=== PATIENT | male | born 1945 ===

== ENCOUNTER 2022-05-10 11:41 | Inpatient (IN) ==
[2022-05-10] MEDS ORDERED: Metoprolol Tartrate 5 mg VIAL 5 ml VIAL (1 mg/ml) IV PRN (15:03)
[2022-05-10 15:14] LABS: Hematocrit 36 % (42-52); Hemoglobin 11.5 g/dL (14.0-18.0); Mean Corpuscular HGB Conc 32 g/dL (31-36); Mean Corpuscular Hemoglobin 28 pg (27-31); Mean Corpuscular Volume 86 fL (80-94); Mean Platelet Volume 7.6 fL (7.4-10.4); Platelet Count 228 10^3/uL (150-450); Red Blood Count 4.12 10^6 /uL (4.18-5.48); Red Cell Distribution Width 18 % (10-15); White Blood Count 27.7 10^3/uL (3.5-10.8)
[2022-05-10 15:20] LABS: INR 4.08 (0.89-1.11)
[2022-05-10] MEDS ORDERED: Lactated Ringers 1000 ml BAG 1,000 ML IV ONE ×2 (15:31→15:38)
[2022-05-10 15:55] LABS: ABS Lymphocytes 0.5 10^3/ul (1.0-4.8); ABS Neutrophils 26.2 10^3/ul (1.5-7.7); Anisocytosis 1+; Lymphocyte % 1.9 %
[2022-05-10 16:01] LABS: Albumin 3.4 g/dL (3.2-5.2); Albumin/Globulin Ratio 1.1 (1-3); Calcium 8.9 mg/dL (8.6-10.3); Globulin 3.1 g/dL (2-4); Magnesium 1.8 mg/dL (1.9-2.7); Potassium 4.8 mmol/L (3.5-5.0); Total Bilirubin 0.6 mg/dL (0.2-1.0); Total Protein 6.5 g/dL (6.4-8.9); eGFR CKD-EPI 32.7 (>60)
[2022-05-10] MEDS ORDERED: Magnesium Sulfate 2 gm BAG 2 GM/50 ML BAG IVPB ONE (16:14)
[2022-05-10] MEDS ORDERED: Furosemide 40 mg/4 ml IV VIAL IV SLOW PU ONE (16:18)
[2022-05-10] MEDS ORDERED: Metoprolol Tartrate 5 mg VIAL 5 ml VIAL (1 mg/ml) IV ONE (17:18)
[2022-05-10] MEDS ORDERED: Phytonadione SUBCUT/IM Adult 10 MG/ML AMP (IM or SQ not preferred route) SUBCUT ONE (17:20)
[2022-05-10] MEDS ORDERED: Vancomycin per Pharmacy 1 EA NOTE FOLLOW UP SCH (18:00)
[2022-05-10] MEDS ORDERED: Phytonadione 10 mg in 50 mL NS over 30 min IV ONE (18:00)
[2022-05-10] MEDS ORDERED: cefTRIAXone 1 gm/50 mL D5W 1 GM/50 ML BAG IV SCH (18:00)
[2022-05-10] MEDS ORDERED: Vancomycin 2,000 MG in NS 0.9% 500 ml BAG 500 ML IVPB ONE (18:00)
[2022-05-10 18:27] LABS: Vancomycin Trough 4.7 mcg/mL
[2022-05-10 19:13] LABS: TSH Ultra Thyroid Stim Horm 1.63 mcIU/mL (0.34-5.60)
[2022-05-10 19:27] LABS: High Sensitivity Troponin 1 Hr 23 pg/mL (<20)
[2022-05-10 19:32] LABS: Osmolality Serum 291 mOsm/kg (275-295)
[2022-05-10] MEDS: Nystatin TOP POWDER 15 GM BTL TOPICAL SCH (20:15)
[2022-05-11] MEDS ORDERED: Vancomycin Random Level NOTE FOLLOW UP ONE (06:00)
[2022-05-11 06:11] LABS: Hematocrit 33 % (42-52); Hemoglobin 10.6 g/dL (14.0-18.0); Mean Corpuscular HGB Conc 33 g/dL (31-36); Mean Corpuscular Hemoglobin 28 pg (27-31); Mean Corpuscular Volume 86 fL (80-94); Mean Platelet Volume 7.8 fL (7.4-10.4); Platelet Count 203 10^3/uL (150-450); Red Blood Count 3.81 10^6 /uL (4.18-5.48); Red Cell Distribution Width 18 % (10-15); White Blood Count 23.8 10^3/uL (3.5-10.8)
[2022-05-11 06:28] LABS: Calcium 8.4 mg/dL (8.6-10.3); Magnesium 2.2 mg/dL (1.9-2.7); Potassium 4.5 mmol/L (3.5-5.0); Vancomycin Random 13.1 mcg/mL; eGFR CKD-EPI 32.9 (>60)
[2022-05-11] MEDS ORDERED: Furosemide 40 mg/4 ml IV VIAL IV ONE ×2 (07:31→12:50)
[2022-05-11 08:02] LABS: Urine Sodium Concentration < 18 mmol/L
[2022-05-11 08:05] LABS: Urine Osmo 224 mOsm/kg (150-1150)
[2022-05-11 08:32] LABS: Vitamin D Total 25(OH) 27.9 ng/mL (20-50)
[2022-05-11 08:37] LABS: INR 3.21 (0.89-1.11)
[2022-05-11 08:59] LABS: Urine Appearance Clear; Urine Bilirubin Negative (Negative); Urine Blood Trace (Intact) (Negative); Urine Color Yellow; Urine Glucose Negative (Negative); Urine Ketones Negative (Negative); Urine Specific Gravity <=1.005 (1.005-1.030)
[2022-05-11 09:00] LABS: Urine Nitrite Negative (Negative); Urine Protein Negative (Negative); Urine Urobilinogen 0.2 (Negative) (Negative)
[2022-05-11] MEDS ORDERED: Furosemide 40 mg/4 ml IV VIAL IV SLOW PU SCH (09:00)
[2022-05-11 09:34] LABS: Urine Amorphous Crystals Present (Absent); Urine Bacteria Absent (Absent); Urine Red Blood Cell Absent (Absent); Urine Squamous Epithelial Cell Present (Absent); Urine White Blood Cell Absent (Absent)
[2022-05-11] MEDS: Nystatin TOP POWDER 15 GM BTL TOPICAL SCH ×3 (09:47→20:09)
[2022-05-11 10:48] LABS: Urine Creatinine Concentration 53.55 mg/dL
[2022-05-11] MEDS ORDERED: Perflutren Lipid Microsphere 3 ML VIAL ONE (11:29)
[2022-05-11 11:39] LABS: Ur Urea Nitrogen Concentration 369 mg/dL
[2022-05-11] MEDS: cefTRIAXone 2 gm/50 mL D5W 2 GM/50 ML BAG IV SCH (12:10)
[2022-05-11 15:47] LABS: C Reactive Protein 292.03 mg/L (<8.01)
[2022-05-12 07:55] LABS: Hematocrit 32 % (42-52); Hemoglobin 10.5 g/dL (14.0-18.0); Mean Corpuscular HGB Conc 32 g/dL (31-36); Mean Corpuscular Hemoglobin 28 pg (27-31); Mean Corpuscular Volume 87 fL (80-94); Mean Platelet Volume 8.2 fL (7.4-10.4); Platelet Count 191 10^3/uL (150-450); Red Blood Count 3.72 10^6 /uL (4.18-5.48); Red Cell Distribution Width 18 % (10-15); White Blood Count 12.9 10^3/uL (3.5-10.8)
[2022-05-12 08:17] LABS: Calcium 8.5 mg/dL (8.6-10.3); Magnesium 2.3 mg/dL (1.9-2.7); Potassium 4.3 mmol/L (3.5-5.0); eGFR CKD-EPI 52.3 (>60)
[2022-05-12] MEDS ORDERED: Furosemide 40 mg/4 ml IV VIAL IV SCH (09:00)
[2022-05-12] MEDS: cefTRIAXone 2 gm/50 mL D5W 2 GM/50 ML BAG IV SCH (09:56)
[2022-05-12] MEDS: Nystatin TOP POWDER 15 GM BTL TOPICAL SCH ×3 (09:56→20:24)
[2022-05-12] MEDS ORDERED: Furosemide 40 mg/4 ml IV VIAL IV SLOW PU SCH (17:00)
[2022-05-13 06:46] LABS: ABS Eosinophils 0.2 10^3/ul (0-0.6); ABS Lymphocytes 0.7 10^3/ul (1.0-4.8); ABS Monocytes 1.2 10^3/ul (0-0.8); ABS Neutrophils 6.8 10^3/ul (1.5-7.7); Eosinophil % 2.2 %; Hematocrit 34 % (42-52); Lymphocyte % 8.1 %; Mean Corpuscular HGB Conc 33 g/dL (31-36); Mean Corpuscular Hemoglobin 28 pg (27-31); Mean Corpuscular Volume 86 fL (80-94); Mean Platelet Volume 7.9 fL (7.4-10.4); Platelet Count 220 10^3/uL (150-450); Red Blood Count 3.92 10^6 /uL (4.18-5.48); Red Cell Distribution Width 18 % (10-15)
[2022-05-13 07:08] LABS: Calcium 8.7 mg/dL (8.6-10.3); Potassium 4.1 mmol/L (3.5-5.0); eGFR CKD-EPI 70.2 (>60)
[2022-05-13] MEDS: cefTRIAXone 2 gm/50 mL D5W 2 GM/50 ML BAG IV SCH (10:14)
[2022-05-13] MEDS: Nystatin TOP POWDER 15 GM BTL TOPICAL SCH ×3 (10:14→20:55)
[2022-05-13] MEDS: Furosemide 40 mg/4 ml IV VIAL IV SCH (15:45)
[2022-05-14] MEDS ORDERED: Furosemide 40 mg/4 ml IV VIAL IV SLOW PU ONE (00:20)
[2022-05-14] MEDS ORDERED: Al Hydrox/Mg Hydrox/Simet LIQ 30 ML UDC PO PRN (00:22)
[2022-05-14 06:29] LABS: ABS Eosinophils 0.3 10^3/ul (0-0.6); ABS Lymphocytes 0.9 10^3/ul (1.0-4.8); ABS Monocytes 1.3 10^3/ul (0-0.8); ABS Neutrophils 5.9 10^3/ul (1.5-7.7); Eosinophil % 3.9 %; Hematocrit 35 % (42-52); Hemoglobin 11.4 g/dL (14.0-18.0); Lymphocyte % 10.3 %; Mean Corpuscular HGB Conc 33 g/dL (31-36); Mean Corpuscular Hemoglobin 28 pg (27-31); Mean Corpuscular Volume 86 fL (80-94); Mean Platelet Volume 7.8 fL (7.4-10.4); Platelet Count 275 10^3/uL (150-450); Red Blood Count 4.04 10^6 /uL (4.18-5.48); Red Cell Distribution Width 18 % (10-15); White Blood Count 8.5 10^3/uL (3.5-10.8)
[2022-05-14 07:17] LABS: Calcium 9.1 mg/dL (8.6-10.3); Magnesium 1.9 mg/dL (1.9-2.7); Potassium 4.4 mmol/L (3.5-5.0); eGFR CKD-EPI 65.1 (>60)
[2022-05-14] MEDS ORDERED: Midazolam 5 mg/5 ml VIAL 1 mg/ml 5 ml VIAL (5 mg) ONE (08:42)
[2022-05-14] MEDS ORDERED: fentaNYL 100 mcg/2 ml 50 MCG/ML VIAL ONE (08:42)
[2022-05-14] MEDS ORDERED: Propofol 10 MG/ML 20 ML BTL ONE (08:42)
[2022-05-14] MEDS ORDERED: Lidocaine 2% PF 5 ML VIAL ONE (08:43)
[2022-05-14] MEDS ORDERED: Ketamine HCL 50 mg/ml 10 ml VIAL (500 MG) ONE (08:43)
[2022-05-14] MEDS: Furosemide 40 mg/4 ml IV VIAL IV SCH ×2 (08:58→14:15)
[2022-05-14] MEDS: cefTRIAXone 2 gm/50 mL D5W 2 GM/50 ML BAG IV SCH (08:59)
[2022-05-14] MEDS ORDERED: Vitamin THERAPEUTIC TAB PO SCH (09:00)
[2022-05-14] MEDS ORDERED: Rocuronium 50 mg VIAL 10 mg/ml 5 ml VIAL (50 mg) ONE (09:27)
[2022-05-14] MEDS ORDERED: Ondansetron 4 mg VIAL 2 MG/ML 2 ml VIAL ONE (09:28)
[2022-05-14] MEDS ORDERED: Succinylcholine 200 mg VIAL 20 mg/ml 10 ml VIAL (200 mg) ONE (09:28)
[2022-05-14] MEDS: Nystatin TOP POWDER 15 GM BTL TOPICAL SCH ×3 (09:48→21:41)
[2022-05-14 10:06] LABS: C Reactive Protein 121.99 mg/L (<8.01)
[2022-05-14] MEDS ORDERED: Senna TAB 8.6 mg TAB PO PRN (10:06)
[2022-05-14] MEDS ORDERED: Naloxone 0.4 mg VIAL 0.4 mg/ml 1 ml VIAL IV PRN (10:40)
[2022-05-14] MEDS ORDERED: Sugammadex 500 MG/5 ML 5 ml VIAL IV PUSH ONE (11:41)
[2022-05-14] MEDS: Magnesium Hydroxide LIQ 30 ML UDC PO SCH ×2 (14:15→21:41)
[2022-05-14 15:33] LABS: INR 1.81 (0.89-1.11)
[2022-05-15 06:07] LABS: Hematocrit 34 % (42-52); Hemoglobin 11.2 g/dL (14.0-18.0); Mean Corpuscular HGB Conc 33 g/dL (31-36); Mean Corpuscular Hemoglobin 28 pg (27-31); Mean Corpuscular Volume 87 fL (80-94); Mean Platelet Volume 7.7 fL (7.4-10.4); Platelet Count 319 10^3/uL (150-450); Red Blood Count 3.95 10^6 /uL (4.18-5.48); Red Cell Distribution Width 18 % (10-15); White Blood Count 10.8 10^3/uL (3.5-10.8)
[2022-05-15 06:30] LABS: ABS Basophils 0.1 10^3/ul (0-0.2); ABS Eosinophils 0.3 10^3/ul (0-0.6); ABS Lymphocytes 0.8 10^3/ul (1.0-4.8); ABS Monocytes 1.6 10^3/ul (0-0.8); ABS Neutrophils 8.1 10^3/ul (1.5-7.7); Eosinophil % 2.3 %; Lymphocyte % 7.6 %
[2022-05-15 06:36] LABS: Calcium 8.7 mg/dL (8.6-10.3); Magnesium 1.9 mg/dL (1.9-2.7); Potassium 4.2 mmol/L (3.5-5.0); eGFR CKD-EPI 80.9 (>60)
[2022-05-15] MEDS: cefTRIAXone 2 gm/50 mL D5W 2 GM/50 ML BAG IV SCH (09:20)
[2022-05-15] MEDS: Magnesium Hydroxide LIQ 30 ML UDC PO SCH ×2 (09:20→20:54)
[2022-05-15] MEDS: Furosemide 40 mg/4 ml IV VIAL IV SCH (09:20)
[2022-05-15] MEDS: Nystatin TOP POWDER 15 GM BTL TOPICAL SCH ×3 (16:33→20:50)
[2022-05-15] MEDS ORDERED: Furosemide 40 mg/4 ml IV VIAL IV ONE (17:49)
[2022-05-16] MEDS ORDERED: Furosemide 40 mg/4 ml IV VIAL IV SLOW PU ONE (04:03)
[2022-05-16 06:01] LABS: Hematocrit 34 % (42-52); Hemoglobin 11.3 g/dL (14.0-18.0); Mean Corpuscular HGB Conc 33 g/dL (31-36); Mean Corpuscular Hemoglobin 29 pg (27-31); Mean Corpuscular Volume 87 fL (80-94); Mean Platelet Volume 7.9 fL (7.4-10.4); Platelet Count 364 10^3/uL (150-450); Red Blood Count 3.97 10^6 /uL (4.18-5.48); Red Cell Distribution Width 17 % (10-15); White Blood Count 10.2 10^3/uL (3.5-10.8)
[2022-05-16 06:09] LABS: ABS Basophils 0.1 10^3/ul (0-0.2); ABS Eosinophils 0.3 10^3/ul (0-0.6); ABS Lymphocytes 1.1 10^3/ul (1.0-4.8); ABS Monocytes 1.2 10^3/ul (0-0.8); ABS Neutrophils 7.4 10^3/ul (1.5-7.7); Eosinophil % 3.1 %; Lymphocyte % 10.9 %
[2022-05-16 06:26] LABS: Calcium 9.1 mg/dL (8.6-10.3); Potassium 4.1 mmol/L (3.5-5.0); eGFR CKD-EPI 80.9 (>60)
[2022-05-16] MEDS: Magnesium Hydroxide LIQ 30 ML UDC PO SCH ×2 (09:05→20:40)
[2022-05-16] MEDS: Furosemide 40 mg/4 ml IV VIAL IV SCH (09:05)
[2022-05-16] MEDS: Nystatin TOP POWDER 15 GM BTL TOPICAL SCH ×3 (09:18→20:41)
[2022-05-17 05:53] LABS: Hematocrit 33 % (42-52); Hemoglobin 10.9 g/dL (14.0-18.0); Mean Corpuscular HGB Conc 33 g/dL (31-36); Mean Corpuscular Hemoglobin 28 pg (27-31); Mean Corpuscular Volume 87 fL (80-94); Mean Platelet Volume 7.4 fL (7.4-10.4); Platelet Count 394 10^3/uL (150-450); Red Blood Count 3.84 10^6 /uL (4.18-5.48); Red Cell Distribution Width 17 % (10-15); White Blood Count 9.4 10^3/uL (3.5-10.8)
[2022-05-17 06:24] LABS: Calcium 8.8 mg/dL (8.6-10.3); Potassium 4.3 mmol/L (3.5-5.0)
[2022-05-17] MEDS: Furosemide 40 mg/4 ml IV VIAL IV SCH (09:29)
[2022-05-17] MEDS: Magnesium Hydroxide LIQ 30 ML UDC PO SCH ×2 (09:30→21:49)
[2022-05-17] MEDS: Nystatin TOP POWDER 15 GM BTL TOPICAL SCH ×3 (13:30→21:11)
[2022-05-18 06:27] LABS: Hematocrit 34 % (42-52); Hemoglobin 10.9 g/dL (14.0-18.0); Mean Corpuscular HGB Conc 33 g/dL (31-36); Mean Corpuscular Hemoglobin 28 pg (27-31); Mean Corpuscular Volume 86 fL (80-94); Mean Platelet Volume 7.3 fL (7.4-10.4); Platelet Count 402 10^3/uL (150-450); Red Cell Distribution Width 17 % (10-15)
[2022-05-18 07:16] LABS: Calcium 8.9 mg/dL (8.6-10.3); Potassium 4.6 mmol/L (3.5-5.0); eGFR CKD-EPI 72.7 (>60)
[2022-05-18] MEDS: Magnesium Hydroxide LIQ 30 ML UDC PO SCH ×2 (09:21→20:15)
[2022-05-18] MEDS: Nystatin TOP POWDER 15 GM BTL TOPICAL SCH ×3 (09:33→20:14)
[2022-05-19 06:09] LABS: Hematocrit 33 % (42-52); Hemoglobin 10.9 g/dL (14.0-18.0); Mean Corpuscular HGB Conc 33 g/dL (31-36); Mean Corpuscular Hemoglobin 29 pg (27-31); Mean Corpuscular Volume 87 fL (80-94); Mean Platelet Volume 7.4 fL (7.4-10.4); Platelet Count 434 10^3/uL (150-450); Red Blood Count 3.83 10^6 /uL (4.18-5.48); Red Cell Distribution Width 17 % (10-15); White Blood Count 8.9 10^3/uL (3.5-10.8)
[2022-05-19 06:31] LABS: Calcium 8.8 mg/dL (8.6-10.3); Magnesium 2.1 mg/dL (1.9-2.7); Potassium 4.1 mmol/L (3.5-5.0); eGFR CKD-EPI 90.6 (>60)
[2022-05-19] MEDS: Nystatin TOP POWDER 15 GM BTL TOPICAL SCH ×3 (08:52→20:08)
[2022-05-19] MEDS: Magnesium Hydroxide LIQ 30 ML UDC PO SCH ×2 (09:19→20:08)
[2022-05-20] MEDS: Magnesium Hydroxide LIQ 30 ML UDC PO SCH ×2 (08:42→21:40)
[2022-05-20] MEDS: Nystatin TOP POWDER 15 GM BTL TOPICAL SCH ×3 (08:43→21:41)
[2022-05-21 06:27] LABS: Hematocrit 33 % (42-52); Hemoglobin 10.8 g/dL (14.0-18.0); Mean Corpuscular HGB Conc 33 g/dL (31-36); Mean Corpuscular Hemoglobin 28 pg (27-31); Mean Corpuscular Volume 86 fL (80-94); Mean Platelet Volume 7.5 fL (7.4-10.4); Platelet Count 473 10^3/uL (150-450); Red Blood Count 3.83 10^6 /uL (4.18-5.48); Red Cell Distribution Width 17 % (10-15); White Blood Count 8.3 10^3/uL (3.5-10.8)
[2022-05-21 07:01] LABS: Calcium 9.2 mg/dL (8.6-10.3); Potassium 4.5 mmol/L (3.5-5.0); eGFR CKD-EPI 89.6 (>60)
[2022-05-21] MEDS: Magnesium Hydroxide LIQ 30 ML UDC PO SCH ×2 (08:42→20:39)
[2022-05-21] MEDS: Nystatin TOP POWDER 15 GM BTL TOPICAL SCH ×3 (08:42→20:39)
[2022-05-22] MEDS: Magnesium Hydroxide LIQ 30 ML UDC PO SCH ×2 (09:39→20:43)
[2022-05-22] MEDS: Nystatin TOP POWDER 15 GM BTL TOPICAL SCH ×3 (09:40→20:44)
[2022-05-23] MEDS: Nystatin TOP POWDER 15 GM BTL TOPICAL SCH ×2 (09:15→16:02)
[2022-05-23] MEDS: Magnesium Hydroxide LIQ 30 ML UDC PO SCH ×2 (09:17→20:33)
[2022-05-23 10:13] LABS: Rapid COVID-19 Molecular Undetected (Undetected)
[2022-05-24] MEDS: Magnesium Hydroxide LIQ 30 ML UDC PO SCH ×2 (11:53→21:19)
[2022-05-25] MEDS: Magnesium Hydroxide LIQ 30 ML UDC PO SCH ×2 (08:50→20:02)
[2022-05-26 07:35] VITALS: BP 128/66
[2022-05-26] MEDS ORDERED: Magnesium Hydroxide LIQ 30 ML UDC PO PRN (08:02)
== END 2022-05-26 10:30 | DRG 871 ==
LOC: SUATTDRO 14:20 → MED 14:20
PROVIDERS: ADMIT Hospitalist; ATTEND Internal Medicine
PROC: O.CATEE (2022-05-14 09:45)